=== PATIENT | female | born 1930 | race Hispanic/Latino ===

== ENCOUNTER 2018-10-26 18:27 | Emergency (ER) | payer MEDICARE, OTHER ==
[2018-10-26 19:42] VITALS: TEMP 97.8; O2SAT 98; BMI 20.5
[2018-10-26] MEDS ORDERED: Labetalol 5mg/ml (4ml) IV STA (19:45)
--- NOTE | 2018-10-26 19:45 | ED PDOC ---
Arrival/HPI - General Historian: Patient, Family - History of Present Illness Narrative History of Present Illness (Text): 10/26/18 19:42 88 year old female, whose past medical history includes diabetes and hypertension, presents to the emergency department complaining of elevated blood pressure today. As per family, patient's blood pressure was noted to be 213/85. As per family member, patient was admitted at [facility] for electrolyte abnormality, UTI, and Sepsis 5 weeks ago and was taken off one of her blood pressure medication. Patient is currently taking Losartan Potassium 500mg and Lopressor 100mg. Patient has an appointment with her PMD tomorrow. Patient denie s any fever, chills, chest pain, shortness of breath, nausea, vomiting, diarrhea, urinary symptoms, back pain, neck pain, headache, dizziness, or any other complaints. PMD Dr. Jeffrey Time/Duration: Other (today) Symptom Onset: Sudden Symptom Course: Unchanged Activities at Onset: Light Context: Home Past Medical History - Provider Review Nursing Documentation Reviewed: Yes - Cardiac Hx Hypertension: Yes - Pulmonary Hx Respiratory Disorders: No - Neurological Hx Neurological Disorder: No - HEENT Hx HEENT Disorder: No - Renal Hx Renal Disorder: No - Endocrine/Metabolic Hx Endocrine Disorders: No - Hematological/Oncological Hx Blood Disorders: No - Integumentary Hx Dermatological Disorder: No - Musculoskeletal/Rheumatological Hx Falls: Yes - Gastrointestinal Hx Gastrointestinal Disorders: No - Genitourinary/Gynecological Hx Genitourinary Disorders: No - Psychiatric Hx Anxiety: Yes Hx Substance Use: No - Surgical History Hx Hysterectomy: Yes - Anesthesia Hx Anesthesia: No Hx Anesthesia Reactions: No Hx Malignant Hyperthermia: No Family/Social History - Physician Review Nursing Documentation Reviewed: Yes Family/Social History: No Known Family HX Smoking Status: Current Some Days Smoker Hx Alcohol Use: No Hx Substance Use: No Allergies/Home Meds Allergies/Adverse Reactions: Allergies Penicillins Allergy (Verified 10/09/18 17:43) RASH Review of Systems - Physician Review All systems were reviewed & negative as marked: Yes - Review of Systems Constitutional: absent: Fevers, Other (chills) Respiratory: absent: SOB Cardiovascular: absent: Chest Pain Gastrointestinal: absent: Diarrhea, Nausea, Vomiting Genitourinary Female: absent: Dysuria, Frequency, Hematuria Musculoskeletal: absent: Back Pain, Neck Pain Neurological: absent: Headache, Dizziness Physical Exam Vital Signs Reviewed: Yes Vital Signs Temp Pulse Resp BP Pulse Ox 10/26/18 19:41 97.8 F 74 20 170/81 H 98 Temperature: Afebrile Blood Pressure: Hypertensive Pulse: Regular Respiratory Rate: Normal Appearance: Positive for: Well-Appearing, Non-Toxic, Comfortable Pain Distress: None Mental Status: Positive for: Alert and Oriented X 3 - Systems Exam Head: Present: Atraumatic, Normocephalic Pupils: Present: PERRL Extroacular Muscles: Present: EOMI Conjunctiva: Present: Normal Mouth: Present: Moist Mucous Membranes Neck: Present: Normal Range of Motion Respiratory/Chest: Present: Clear to Auscultation, Good Air Exchange. No: Respiratory Distress, Accessory Muscle Use Cardiovascular: Present: Regular Rate and Rhythm, Normal S1, S2. No: Murmurs Abdomen: No: Tenderness, Distention, Peritoneal Signs Neurological: Present: GCS=15, Speech Normal Skin: Present: Warm, Dry, Normal Color. No: Rashes Psychiatric: Present: Alert, Oriented x 3 Medical Decision Making ED Course and Treatment: 10/26/18 19:42 Impression: 88 year old female presents for evaluation of elevated blood pressure today. Differential Diagnosis included but are not limited to: -- Hypertensive urgency Plan: --Labs --CXR --Labetolol --Ciprofloxacin --UA --Urine culture -- Reassess and disposition Prior Visits: Notes and results from previous visits were reviewed. Progress Notes: 10/26/18 21:06 UA shows many leukocytes and bacteria within the urine. Ciprofloxacin ordered. Labs pending. Signout given to Dr. Lockhart who will resume the patient's care. - Lab Interpretations I have reviewed the lab results: Yes - Scribe Statement The provider has reviewed the documentation as recorded by the Mason Valero Provider Scribe Attestation: All medical record entries made by the Lenoraibbrian were at my direction and personally dictated by me. I have reviewed the chart and agree that the record accurately reflects my personal performance of the history, physical exam, medical decision making, and the department course for this patient. I have also personally directed, reviewed, and agree with the discharge instructions and disposition. Disposition/Present on Arrival - Present on Arrival History of DVT/PE: No History of Uncontrolled Diabetes: No Urinary Catheter: No History Surgical Site Infection Following: None - Disposition
[2018-10-26 20:24] LABS: URINE BILIRUBIN NEGATIVE (NEGATIVE); URINE BLOOD SMALL (NEGATIVE); URINE GLUCOSE (UA) NEGATIVE (NEGATIVE); URINE LEUKOCYTE ESTERASE MODERATE Leu/uL (NEGATIVE); URINE PROTEIN 30 mg/dL (<30 mg/dL); URINE UROBILINOGEN 0.2 E.U./dL (<1 E.U./dL)
[2018-10-26 20:33] LABS: URINE APPEARANCE CLEAR (CLEAR)
[2018-10-26 20:36] LABS: URINE EPITHELIAL CELLS MANY /hpf (0-5)
[2018-10-26 20:37] LABS: URINE AMORPHOUS SEDIMENT SMALL /hpf; URINE BACTERIA TRACE /hpf
[2018-10-26 21:05] VITALS: RESP 18
[2018-10-26 21:26] LABS: INR 1.06; PARTIAL THROMBOPLASTIN TIME 34.9 Seconds (26.9-38.3); PROTHROMBIN TIME 11.8 SECONDS (9.4-12.5)
[2018-10-26 21:29] LABS: ALB/GLOB RATIO 1.2 (1.1-1.8); ALBUMIN 3.9 g/dL (3.0-4.8); BLOOD UREA NITROGEN 17 mg/dL (7-21); CALCIUM 9.2 mg/dL (8.4-10.5); GFR NON-AFRICAN AMERICAN > 60
[2018-10-26 21:32] LABS: ALT/SGPT 15 U/L (7-56); AST/SGOT 29 U/L (14-36)
[2018-10-26 21:40] LABS: B-TYPE NATRIURETIC PEPTIDE 1020 pg/mL (0-450); TROPONIN I 0.02 ng/mL
--- NOTE | 2018-10-26 22:15 | ED PDOC ---
Physical Exam Vital Signs Temp Pulse Resp BP Pulse Ox 10/26/18 21:04 76 18 172/78 H 98 10/26/18 19:41 97.8 F 74 20 170/81 H 98 10/26/18 19:30 97.8 F 74 20 170/81 H 98 Medical Decision Making ED Course and Treatment: 10/26/18 21:00 Case endorsed to me by Dr. Grover, pending labs, CXR, re-evaluation, and disposition. pt bp improved will dc wbc normal - Lab Interpretations Lab Results: PT 11.8 SECONDS (9.4-12.5) 10/26/18 21:10 INR 1.06 10/26/18 21:10 APTT 34.9 Seconds (26.9-38.3) 10/26/18 21:10 Troponin I 0.02 ng/mL 10/26/18 21:10 NT-Pro-B Natriuret Pep 1020 pg/mL (0-450) H 10/26/18 21:10 Total Bilirubin 0.4 mg/dL (0.2-1.3) 10/26/18 21:10 AST 29 U/L (14-36) 10/26/18 21:10 ALT 15 U/L (7-56) 10/26/18 21:10 Alkaline Phosphatase 92 U/L (38-126) 10/26/18 21:10 Total Protein 7.0 g/dL (5.8-8.3) 10/26/18 21:10 Albumin 3.9 g/dL (3.0-4.8) 10/26/18 21:10 Globulin 3.1 gm/dL 10/26/18 21:10 Albumin/Globulin Ratio 1.2 (1.1-1.8) 10/26/18 21:10 Urine Color yellow (YELLOW) 10/26/18 20:19 Urine Appearance Clear (CLEAR) 10/26/18 20:19 Urine pH 6.0 (4.7-8.0) 10/26/18 20:19 Ur Specific [place] >= 1.030 (1.005-1.035) 10/26/18 20:19 Urine Protein 30 mg/dL (<30 mg/dL) H 10/26/18 20:19 Urine Glucose (UA) Negative mg/dL (NEGATIVE) 04/09/19 20:19 Urine Ketones Negative mg/dL (NEGATIVE) 10/26/18 20:19 Urine Blood Small (NEGATIVE) H 10/26/18 20:19 Urine Nitrate Negative (NEGATIVE) 10/26/18 20:19 Urine Bilirubin Negative (NEGATIVE) 10/26/18 20:19 Urine Urobilinogen 0.2 E.U./dL (<1 E.U./dL) 10/26/18 20:19 Ur Leukocyte Esterase Moderate Qi/uL (NEGATIVE) H 10/26/18 20:19 Urine RBC 10 - 15 /hpf (0-2) H 10/26/18 20:19 Urine WBC 10 - 15 /hpf (0-6) H 10/26/18 20:19 Ur Epithelial Cells Many /hpf (0-5) H 10/26/18 20:19 Amorphous Sediment Small /hpf (NONE) 10/26/18 20:19 Urine Bacteria Trace /hpf (NONE) 10/26/18 20:19 - RAD Interpretation Radiology Orders: 10/26/18 19:45 CHEST PORTABLE [RAD] Stat - Medication Orders Current Medication Orders: Discontinued Medications Ciprofloxacin (Cipro) 500 mg PO ONCE ONE; Protocol Stop: 10/26/18 21:00 Last Admin: 10/26/18 21:08 Dose: 500 mg Labetalol HCl (Trandate) 10 mg IV STAT STA Stop: 10/26/18 19:46 Last Admin: 10/26/18 20:49 Dose: 10 mg eMAR Start Stop Document 10/26/18 20:49 CD (Rec: 10/26/18 20:49 CD [id number]) Intravenous Solution Start Date 10/26/18 Start Time 20:49 Disposition/Present on Arrival - Present on Arrival Any Indicators Present on Arrival: No History of DVT/PE: No History of Uncontrolled Diabetes: No Urinary Catheter: No History of Decub. Ulcer: No History Surgical Site Infection Following: None - Disposition Have Diagnosis and Disposition been Completed?: Yes Diagnosis: Hypertension, UTI (urinary tract infection) Disposition: HOME/ ROUTINE Disposition Time: 22:45 Condition: GOOD Discharge Instructions (ExitCare): Urinary Tract Infections in Adults, High Blood Pressure in Adults Additional Instructions: follow up with dr shepard tomorrow Prescriptions: Ciprofloxacin HCl [Cipro] 250 mg PO BID #14 tab Forms: [employer] (Hungarian)
[2018-10-26 22:24] LABS: BASO # 0.05 K/mm3 (0.0-2.0); BASO % 0.5 % (0.0-3.0); EOS # 0.3 (0.0-0.7); EOS % 3.3 % (1.5-5.0); HEMOGLOBIN 12.1 g/dL (12.0-16.0); LYMPH # 1.8 (1.2-3.4); LYMPH % 17.7 % (22.0-35.0); MEAN CELL VOLUME 94.1 fl (80.0-105.0); MEAN CORPUSCULAR HGB CONC 31.8 g/dl (31.0-37.0); MEAN PLATELET VOLUME 11.8 fl (7.0-11.0); MONO # 0.9 (0.1-0.6); RBC 4.04 10^6/uL (3.5-6.1); RED CELL DISTRIBUTION WIDTH 15.5 % (11.5-14.5); WHITE BLOOD COUNT 10.1 10^3/uL (4.5-11.0)
[2018-10-26 22:54] VITALS: BP 158/81; PULSE 78
--- NOTE | 2018-10-27 09:52 | CARD ---
APPROVED REPORT Date of service: 10/26/2018 EKG Measurement Heart [id number] <Conclusion> Normal sinus rhythm Minimal voltage criteria for LVH, may be normal variant Borderline ECG
--- NOTE | 2018-10-27 10:33 | RAD ---
Date of service: 10/26/2018 HISTORY: elevated BP COMPARISON: No prior. TECHNIQUE: 1 view obtained. FINDINGS: LUNGS: No active pulmonary disease. PLEURA: No significant pleural effusion identified, no pneumothorax apparent. CARDIOVASCULAR: Aortic calcification Normal cardiac size. No pulmonary vascular congestion. OSSEOUS STRUCTURES: No significant abnormalities. VISUALIZED UPPER ABDOMEN: Normal. OTHER FINDINGS: None. IMPRESSION: No active disease.
== END 2018-10-26 22:50 | disposition home or self-care (01) ==
LOC: ED 18:27
DX: I10 Essential (primary) hypertension (principal); N39.0 Urinary tract infection, site not specified; E11.9 Type 2 diabetes mellitus without complications